=== PATIENT | male | born 1975 | race Caucasian/White ===

== ENCOUNTER 2016-12-16 20:45 | Emergency (ER) | payer OTHER ==
--- NOTE | 2016-12-22 02:33 | ER ---
ADMIT: 12/16/2016 RM/LOC: ER [facility] MR#: [id number] [address] [facility] [address] [address] [place] [address] Emergency Room Report SEX: M AGE: 41 : 1975 DATE: 12/16/2016 TIME: 2044 Please refer to my T-sheet for complete H and P. HISTORY OF PRESENT ILLNESS: Briefly, the patient comes in with back pain, hurt it changing a tire yesterday, rates it 8/10. It is low back down his left leg. PHYSICAL EXAMINATION: VITAL SIGNS: Stable. HEENT: Grossly normal. BACK: He has tenderness in the lower lumbar region extending down his leg. He has really a negative leg raise though. EMERGENCY DEPARTMENT COURSE: He drove here, so I gave him prednisone 40 p.o. We filled some Flexeril and Sherrill and he will follow up. ASSESSMENT: 1. Sciatica. 2. Lumbar strain. PLAN: Sherrill 5, he was given a script for 15 and Flexeril 10, they gave him script for 15. Follow up with Sarai, return if worse. Tayo Price MD/ maria luisa JOB #: [id number] CC: Tayo Price MD, Attending Physician Rommel Moon MD, Family Physician
== END 2016-12-16 22:50 | disposition home or self-care (01) ==
LOC: ER 20:45
DX: S39.012A Strain of muscle, fascia and tendon of lower back, initial encounter (principal); I10 Essential (primary) hypertension; E11.9 Type 2 diabetes mellitus without complications; Z98.890 Other specified postprocedural states; Z79.899 Other long term (current) drug therapy; X50.9XXA Other and unspecified overexertion or strenuous movements or postures, initial encounter

== ENCOUNTER 2017-03-12 12:04 | Emergency (ER) | payer SELFPAY ==
--- NOTE | 2017-03-18 15:59 | ER ---
ADMIT: 03/12/2017 RM/LOC: ER [facility] MR#: [id number] [address] [address] [place] [address] [address] [place] [id number] Emergency Room Report SEX: M AGE: 41 : 1975 DATE: 03/12/2017 ADDENDUM: This patient comes to the ER because he has back pain. He was bending over to clean a fish when he strained his back. He has a history of this happening in the past. The normal type pain for him. The only concern he states is when he bend over. He had a shooting pain down his leg and he was slightly incontinent of urine. The incontinence has never happened before. On physical exam, he is alert and oriented. He states he has had no issues controlling his bladder now. At this time, we did do a postvoid bladder scan, which showed 80 mL after urination. He was given Toradol and Valium. When I went to re-evaluate him, he did have some relief. I wrote a prescription for Valium and tramadol he is follow up with his primary. Please see my sheet. LUIS Shah / Chacho Zuniga MD / maria luisa JOB #: [id number] CC: Chacho Zuniga MD, Attending Physician Hang Williamson MD, Family Physician
== END 2017-03-12 13:34 | disposition home or self-care (01) ==
LOC: ER 12:04
DX: S39.012A Strain of muscle, fascia and tendon of lower back, initial encounter (principal); E11.9 Type 2 diabetes mellitus without complications; I10 Essential (primary) hypertension; Z90.49 Acquired absence of other specified parts of digestive tract; Z79.899 Other long term (current) drug therapy; X50.1XXA Overexertion from prolonged static or awkward postures, initial encounter; Y93.G9 Activity, other involving cooking and grilling